=== PATIENT | female | born 1965 | race African-American/Black ===

== ENCOUNTER 2017-05-04 17:43 | Emergency (ER) | payer OTHER ==
[2017-05-04] MEDS: SOD CHLORIDE 0.9% 500 ML IV (21:02)
[2017-05-04] MEDS: DEXAMETHASONE 10 MG/ML 1 ML INJ IV (21:02)
[2017-05-04] MEDS: LORAZEPAM 1 MG TAB PO (21:02)
[2017-05-04] MEDS: CLINDAMYCIN 600 MG/D5W (PMX) 50 ML IVPB (21:23)
[2017-05-04] MEDS: morphine 2 MG INJ IV (21:45)
== END 2017-05-04 23:46 | disposition home or self-care (01) ==
LOC: FTE 23:46
DX: L02.31 Cutaneous abscess of buttock (principal); I10 Essential (primary) hypertension
CPT/HCPCS: 10060; 96374; 96375; 99284-25

== ENCOUNTER 2017-05-06 07:59 | Emergency (ER) | payer OTHER | END 2017-05-06 09:23 | disposition home or self-care (01) | LOC: E/R 09:23 | DX: Z48.01 Encounter for change or removal of surgical wound dressing (principal); I10 Essential (primary) hypertension | CPT/HCPCS: 99281; Z7502 ==

== ENCOUNTER 2017-06-08 19:04 | Emergency (ER) | payer OTHER | END 2017-06-08 21:12 | disposition home or self-care (01) | LOC: FTE 19:04 | DX: N76.2 Acute vulvitis (principal); I10 Essential (primary) hypertension | CPT/HCPCS: 99284; Z7502 ==

== ENCOUNTER 2017-06-12 10:17 | Emergency (ER) | payer OTHER | END 2017-06-12 12:38 | disposition home or self-care (01) | LOC: FTE 10:17 | DX: N76.4 Abscess of vulva (principal); I10 Essential (primary) hypertension | CPT/HCPCS: 56405; 99283-25 ==

== ENCOUNTER 2018-04-13 00:10 | Emergency (ER) | payer OTHER ==
[2018-04-13 02:05] LABS: URINE PH (Dip) POC 5.5 (5.0-8.5)
[2018-04-13 02:05] LABS: URINE BLOOD (Dip) POC 1+ (NEGATIVE); URINE GLUCOSE (Dip) POC Negative (NEGATIVE); URINE KETONES (Dip) POC Negative (NEGATIVE); URINE LEUKOCYTE EST (Dip) POC 1+ (NEGATIVE); URINE NITRITE (Dip) POC Negative (NEGATIVE); URINE TOTAL PROTEIN POC 2+ (NEGATIVE)
[2018-04-13] MEDS: COLCHICINE 0.6 MG TAB PO (02:18)
[2018-04-13] MEDS: HYDROCODONE/APAP (10/325) TAB PO (02:22)
[2018-04-13 03:34] LABS: ADD UMIC YES; UR AMORPHOUS CRYSTAL FEW /HPF (NONE SEEN); UR ASCORBIC ACID NEGATIVE (NEGATIVE); UR BACTERIA FEW /HPF (NONE SEEN); UR BILIRUBIN (Dip) NEGATIVE (NEGATIVE); UR BLOOD (Dip) 1+ mg/dL (NEGATIVE); UR CLARITY CLOUDY (CLEAR); UR COLOR YELLOW (YELLOW); UR GLUCOSE (Dip) NEGATIVE (NEGATIVE); UR KETONES (Dip) NEGATIVE (NEGATIVE); UR LEUKOCYTE ESTERASE (Dip) 3+ Leu/ul (NEGATIVE); UR NITRITE (Dip) NEGATIVE (NEGATIVE); UR RBC 13 /HPF (0-5); UR SPECIFIC GRAVITY (Dip) 1.018 (1.003-1.030); UR SQUAMOUS EPITHELIAL CELL MODERATE /HPF (FEW); UR TOTAL PROTEIN (Dip) 1+ mg/dl (NEGATIVE); UR UROBILINOGEN (Dip) 1+ mg/dL (NEGATIVE); UR WBC > 182 /HPF (0-5)
[2018-04-13 03:35] LABS: UR MUCUS FEW /HPF (NONE SEEN)
== END 2018-04-13 05:13 | disposition home or self-care (01) ==
LOC: FTE 05:13
DX: N39.0 Urinary tract infection, site not specified (principal); M13.841 Other specified arthritis, right hand; I10 Essential (primary) hypertension; R40.2142 Coma scale, eyes open, spontaneous, at arrival to emergency department; R40.2252 Coma scale, best verbal response, oriented, at arrival to emergency department; R40.2362 Coma scale, best motor response, obeys commands, at arrival to emergency department
CPT/HCPCS: 73130; 73130-RT; 81001; 81003; 84703; 87086; 93971; 99285-25

== ENCOUNTER 2018-04-14 13:50 | Emergency (ER) | payer OTHER ==
[2018-04-14 14:54] LABS: URINE BLOOD (Dip) POC Trace-intact (NEGATIVE); URINE GLUCOSE (Dip) POC Negative (NEGATIVE); URINE KETONES (Dip) POC Negative (NEGATIVE); URINE LEUKOCYTE EST (Dip) POC 1+ (NEGATIVE); URINE NITRITE (Dip) POC Negative (NEGATIVE); URINE TOTAL PROTEIN POC Negative (NEGATIVE)
[2018-04-14] MEDS: ERTAPENEM SODIUM 1 GM in SOD CHLORIDE 0.9% 100 ML IVPB (15:03)
[2018-04-14] MEDS: DEXAMETHASONE 10 MG/ML 1 ML INJ IV (15:03)
[2018-04-14] MEDS: SOD CHLORIDE 0.9% 1,000 ML IV (15:04)
[2018-04-14] MEDS: KETOROLAC 15 MG INJ IV (15:04)
[2018-04-14 15:18] LABS: ADD MAN DIFF? NO
[2018-04-14 15:22] LABS: BASOPHILS % 0.4 % (0.0-2.0); EOSINOPHILS # 0.2 10^3/ul (0.0-0.5); EOSINOPHILS % 1.8 % (0.0-7.0); HEMOGLOBIN 13.7 g/dl (12.0-16.0); LYMPHOCYTES # 1.7 10^3/ul (0.8-2.9); LYMPHOCYTES % 20.6 % (15.0-51.0); MEAN CORPUSCULAR HEMOGLOBIN 26.8 pg (29.0-33.0); MEAN CORPUSCULAR HGB CONC 32.6 g/dl (32.0-37.0); MEAN PLATELET VOLUME 11.2 fl (7.4-10.4); MONOCYTE # 0.8 10^3/ul (0.3-0.9); MONOCYTES % 10.1 % (0.0-11.0); NEUTROPHIL # 5.6 10^3/ul (1.6-7.5); PLATELET COUNT 199 10^3/UL (140-415); RED BLOOD COUNT 5.12 10^6/ul (4.20-5.40); RED CELL DISTRIBUTION WIDTH 13.6 % (11.5-14.5)
[2018-04-14 15:22] LABS: WHITE BLOOD COUNT 8.3 10^3/ul (4.8-10.8)
[2018-04-14 15:50] LABS: ANION GAP 9 (5-13); BLOOD UREA NITROGEN 12 mg/dl (7-20); CALCIUM 10.4 mg/dl (8.4-10.2); CARBON DIOXIDE 30 mmol/L (21-31); CHLORIDE 100 mmol/L (97-110); CREATININE 0.65 mg/dl (0.44-1.00); Estimated GFR > 60 mL/min (>60); GLUCOSE 109 mg/dl (70-220); POTASSIUM 3.9 mmol/L (3.5-5.1); SODIUM 139 mmol/L (135-144)
== END 2018-04-14 18:18 | disposition home or self-care (01) ==
LOC: FTE 13:50
DX: L03.113 Cellulitis of right upper limb (principal)
CPT/HCPCS: 73130; 73130-RT; 80048; 81003; 81025; 85025; 96374; 96375; 99284-25

== ENCOUNTER 2018-04-17 09:27 | Emergency (ER) | payer OTHER ==
[2018-04-17] MEDS: KETOROLAC 15 MG INJ IV (11:20)
[2018-04-17] MEDS: DEXAMETHASONE 10 MG/ML 1 ML INJ IV (11:20)
[2018-04-17] MEDS: LIDOCAINE 1% (MPF) 5 ML VIAL INJ (12:08)
== END 2018-04-17 12:48 | disposition home or self-care (01) ==
LOC: FTE 09:27
DX: M67.441 Ganglion, right hand (principal); L03.113 Cellulitis of right upper limb
CPT/HCPCS: 20612; 96374; 96375; 99284-25